=== PATIENT | male | born 1990 | race African-American/Black ===

== ENCOUNTER 2019-05-13 14:22 | Emergency (ER) | payer OTHER ==
[2019-05-13] MEDS ORDERED: Lidocaine 1% MPF ** 5 ML VIAL INJ ONE (15:46)
[2019-05-13] MEDS ORDERED: Tetan/Diph/Pertus SYR(Tdap)* 0.5 ML SYR(BOOSTRIX) use SYR contains LATEX IM ONE (15:46)
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
[2019-05-13] MEDS ORDERED: Sulfamethox/Trimethoprim DS 800/160* TAB PO ONE (17:31)
[2019-05-13 17:57] VITALS: BP 148/77
== END 2019-05-13 17:46 | disposition home or self-care (01) ==
LOC: ED 14:22
DX: S01.81XA Laceration without foreign body of other part of head, initial encounter (principal); M25.521 Pain in right elbow; M25.511 Pain in right shoulder; Y09 Assault by unspecified means; Y92.9 Unspecified place or not applicable
CPT/HCPCS: 12004; 90471; 90715; 96374; 99283; A9270-GY